=== PATIENT | female | born 1975 | race Caucasian/White ===

== ENCOUNTER 2017-09-22 14:11 | Emergency (ER) | payer BC ==
[~2017-09-22] VITALS: Ht 162.6 cm; Wt 67.0 kg
[2017-09-22 14:53] LABS: BASOPHILS % (AUTO) 0.4 % (0-1); EOSINOPHILS # (AUTO) 0.1 X10'3 (0-0.9); EOSINOPHILS % (AUTO) 1.5 % (0-6); HEMATOCRIT 37.2 % (35.0-45.0); HEMOGLOBIN 12.9 g/dl (12.0-16.0); LYMPHOCYTES # (AUTO) 1.9 X10'3 (1.1-4.8); LYMPHOCYTES % (AUTO) 21.6 % (21-51); MEAN CORPUSCULAR HGB CONC 34.7 % (33.0-36.5); MEAN PLATELET VOLUME 8.4 FL (7.4-10.4); MONOCYTES # (AUTO) 0.3 X10'3 (0-0.9); MONOCYTES % (AUTO) 3.6 % (2-12); NEUTROPHILS # (AUTO) 6.6 X10'3 (1.8-7.7); NEUTROPHILS % (AUTO) 72.9 % (42-75); PLATELET COUNT 253 X10'3 (140-440); RED BLOOD COUNT 3.79 X10'6 (4.20-5.60); RED CELL DISTRIBUTION WIDTH 11.8 % (11.5-14.5)
[2017-09-22 15:09] LABS: ALANINE AMINOTRANSFERASE 18 U/L (12-78); ALBUMIN 3.7 G/DL (3.4-5.0); ALBUMIN/GLOBULIN RATIO 1.1 (1.1-1.5); ALKALINE PHOSPHATASE 64 IU/L (46-116); ANION GAP 8 (8-16); ASPARTATE AMINO TRANSFERASE 14 U/L (10-37); BILIRUBIN,TOTAL 0.8 MG/DL (0.1-1.0); BLOOD UREA NITROGEN 13 MG/DL (7-18); BUN/CREATININE RATIO 16.7 (6.6-38.0); CHLORIDE 104 MMOL/L (99-107); CREATININE 0.78 MG/DL (0.40-0.90); GLUCOSE 149 MG/DL (70-104); POTASSIUM 3.6 MMOL/L (3.5-5.1); SODIUM 140 MMOL/L (135-145); TOTAL CARBON DIOXIDE 27.8 MMOL/L (24-32); eGFR 80 ML/MIN
[2017-09-22 18:14] VITALS: BP 124/79
== END 2017-09-22 18:15 | disposition home or self-care (01) ==
LOC: ER 14:13
DX: R55 Syncope and collapse (principal)
CPT/HCPCS: 36415; 80053; 85025; 93005; 99285

== ENCOUNTER 2019-02-25 16:46 | Emergency (ER) | payer BC ==
[~2019-02-25] VITALS: Ht 162.6 cm; Wt 68.2 kg
[2019-02-25 16:55] VITALS: BP 122/71
[2019-02-25] MEDS ORDERED: ondansetron 4mg rapidly disintigrating tab PO ONE (17:40)
[2019-02-25] MEDS ORDERED: HYDROcodone/acetaminophen 5mg/325mg tablet PO ONE (17:40)
[2019-02-25] MEDS ORDERED: HYDR-4383 PO (17:47)
[2019-02-25] MEDS ORDERED: ONDA4TAB6 PO (17:47)
--- NOTE | 2019-02-25 18:04 | NUR ---
orthopedic coder @ bedside
== END 2019-02-25 18:25 | disposition home or self-care (01) ==
LOC: ER 16:47
DX: S82.831A Other fracture of upper and lower end of right fibula, initial encounter for closed fracture (principal); Z79.899 Other long term (current) drug therapy; V86.96XA Unspecified occupant of dirt bike or motor/cross bike injured in nontraffic accident, initial encounter; Y93.89 Activity, other specified; Y92.89 Other specified places as the place of occurrence of the external cause; Y99.8 Other external cause status
CPT/HCPCS: 29515; 73610; 99283

== ENCOUNTER 2019-03-11 10:11 | Day surgery (SDC) | payer BC ==
[2019-03-10 16:00] LABS: BASOPHILS % (AUTO) 0.4 % (0-1); EOSINOPHILS # (AUTO) 0.1 X10'3 (0-0.9); EOSINOPHILS % (AUTO) 1.5 % (0-6); MEAN CORPUSCULAR HEMOGLOBIN 34.3 PG (27.0-31.0); MEAN CORPUSCULAR HGB CONC 35.3 g/dL (33.0-36.5); MEAN CORPUSCULAR VOLUME 97.2 FL (78-98); MEAN PLATELET VOLUME 7.9 FL (7.4-10.4); MONOCYTES # (AUTO) 0.4 X10'3 (0-0.9); MONOCYTES % (AUTO) 3.9 % (2-12); NEUTROPHILS # (AUTO) 6.6 X10'3 (1.8-7.7); NEUTROPHILS % (AUTO) 72.2 % (42-75); PRE OP HEMATOCRIT 38.5 % (35.0-45.0); PRE OP HEMOGLOBIN 13.6 g/dL (12.0-16.0); PRE OP PLATELET COUNT 316 X10'3 (140-440); RED BLOOD COUNT 3.96 X10'6 (4.20-5.60); RED CELL DISTRIBUTION WIDTH 11.7 % (11.5-14.5)
[2019-03-10 16:15] LABS: ALBUMIN 3.8 G/DL (3.4-5.0); ALBUMIN/GLOBULIN RATIO 1.1 (1.1-1.5); ALKALINE PHOSPHATASE 71 IU/L (46-116); BLOOD UREA NITROGEN 11 MG/DL (7-18); BUN/CREATININE RATIO 16.2 (6.6-38.0); CALCIUM 8.6 MG/DL (8.5-10.1); CHLORIDE 107 MMOL/L (99-107); CREATININE 0.68 MG/DL (0.40-0.90); PRE OP ALT 23 U/L (30-65); PRE OP ANION GAP 4 (8-16); PRE OP AST 12 U/L (10-37); PRE OP BILIRUB, TOTAL 0.5 MG/DL (0.0-1.0); PRE OP GLUCOSE 101 MG/DL (70-104); PRE OP POTASSIUM 3.6 MMOL/L (3.4-5.1); PRE OP SODIUM 142 MMOL/L (135-145); TOTAL CARBON DIOXIDE 31.5 MMOL/L (24-32); TOTAL PROTEIN 7.3 G/DL (6.4-8.2); eGFR > 90 ML/MIN
[~2019-03-11] VITALS: Ht 162.6 cm; Wt 70.4 kg
[~2019-03-11 10:11] MED LIST: CHOL400T14 PO; DOCUMENT DATE & TIME OF BETA-BLOCKER PO ONE; PROP40TA72 PO; SUMA50TA17 PO; VALA500T37 PO; VITA-268 PO; ceFAZolin 1GM/D5W- ADD-VANTAGE 50 ML IV ONE; famotidine 10mg tablet PO ONE; ringers solution, lacted 1,000 ML IV SCH
[2019-03-11 11:42] VITALS: BP 123/80
[2019-03-11 11:46] VITALS: BP 123/80
[2019-03-11] MEDS ORDERED: cloNIDine hcl/PF 100mcg/ml inj ONE (14:15)
[2019-03-11] MEDS ORDERED: sevoflurane 250ml liquid IH ONE (14:35)
[2019-03-11] MEDS ORDERED: ceFAZolin 1000mg inj ONE (14:39)
[2019-03-11] MEDS ORDERED: fentaNYL/PF 50MCG/1 ML 2ML syringe ONE (15:15)
[2019-03-11] MEDS ORDERED: midazolam 2 mg/2 ml injection ONE (15:15)
[2019-03-11] MEDS ORDERED: ROPIVAcaine 0.5% (5mg/ml) 30ml vial ONE ×2 (15:36)
[2019-03-11] MEDS ORDERED: LIDOcaine 2% (20mg/ml) 5ml vial ONE (15:36)
[2019-03-11] MEDS ORDERED: propofol inj 20 ML IV ONE (15:36)
[2019-03-11] MEDS ORDERED: ondansetron/PF 4mg/2ml inj ONE (15:37)
[2019-03-11] MEDS ORDERED: dexamethasone sod phosphate 4mg/ml inj. ONE (15:37)
[2019-03-11] MEDS ORDERED: ringers solution, lacted 1,000 ML IV SCH (16:14)
[2019-03-11] MEDS ORDERED: proCHLORperazine 10 MG/2 ml inj IV PRN (16:15)
[2019-03-11] MEDS ORDERED: morphine 4 MG/ML inj SYRINge IV PRN ×2 (16:15)
[2019-03-11] MEDS ORDERED: acetaminophen 1,000mg/100ml IV 100 ML IV PRN (16:15)
[2019-03-11] MEDS ORDERED: meperidine/PF 25mg/ml syringe IV PRN ×3 (16:15)
[2019-03-11] MEDS ORDERED: ondansetron/PF 4mg/2ml inj IV PRN (16:15)
[2019-03-11] MEDS ORDERED: ketorolac trometh. 30mg/ml inj. ONE (16:18)
[2019-03-11 16:31] VITALS: BP 100/76
--- NOTE | 2019-03-11 16:31 | NUR ---
Received from OR via ORTHO BED WITH ED , accompanied by Anesthesiologist TABBY and report given by Anesthesiolgist. PATIENT WITH 20G PIV IN RIGHT HAND RUNNING LR AT 100. DENIES PAIN. VSS. GATCHED FOOT OF BED AND PATIENT HAS SPLINT TO RIGHT LE. + CAP REFILL TO TOES AND MOVES ALL TOES WELL. GLASSES DONNED AND PATIENT NOW ON ROOM AIR. Addendum: 03/11/19 at 1650 by Siddhartha Chou RN, RN Amended: Links added.
[2019-03-11 16:41] VITALS: BP 105/65
[2019-03-11 16:51] VITALS: BP 104/66
[2019-03-11 17:01] VITALS: BP 102/68
--- NOTE | 2019-03-11 17:11 | NUR ---
ALL DC CRITERIA HAS BEEN MET . IV IN PLACE AND IS CDI RUNNING FLUIDS. DENIES PAIN. RIGHT LE GATCHED WITH + CAP REFILL AND MOVEMENT. 2-10 PAIN UPON ARRIVAL TO ORTHO. BED LOW, CALL LIGHT PRESENTT WELL FAMILY AND YOHAN GUPTA WHOM ASSISTED WITH SET UP AND ASSESSMENT OF PATIENT. ALL QUESTIONS ANSWERED. Addendum: 03/11/19 at 1727 by Siddhartha Carrington - YOHAN ALMANZAR Amended: Links added.
--- NOTE | 2019-03-11 17:11 | NUR ---
ALL DC INSTRUCTIONS GIVEN TO PATIENT AND SPOUSE. ALL QUESTIONS ANSWERED TO SATISFACTION. IV OUT WITHOUT ISSUE. AMBULATED NON WEIGHT BEARING AND WAS TAKEN OUT VIA WHEELCHAIR. FAMILY DROVE PATIENT HOME. PATIENT PAIN CONTROLLED AT THIS TIME. Addendum: 03/11/19 at 1831 by Siddhartha Chou RN, RN Amended: Links added.
--- NOTE | 2019-03-11 17:19 | NUR ---
Patient in room . I have received report from Siddhartha ALMANZAR and had the opportunity to ask questions and assume patient care.
== END 2019-03-11 17:11 | disposition home or self-care (01) ==
LOC: PAS 10:11
PROVIDERS: ATTEND Orthopaedic Surgery
DX: S82.61XA Displaced fracture of lateral malleolus of right fibula, initial encounter for closed fracture (principal); G43.909 Migraine, unspecified, not intractable, without status migrainosus; G89.18 Other acute postprocedural pain; X58.XXXA Exposure to other specified factors, initial encounter; Y93.89 Activity, other specified; Y92.89 Other specified places as the place of occurrence of the external cause; Y99.8 Other external cause status; Z98.890 Other specified postprocedural states; Z90.710 Acquired absence of both cervix and uterus; Z79.899 Other long term (current) drug therapy; Z83.3 Family history of diabetes mellitus; Z82.49 Family history of ischemic heart disease and other diseases of the circulatory system; Z80.0 Family history of malignant neoplasm of digestive organs; Z80.3 Family history of malignant neoplasm of breast; Z80.52 Family history of malignant neoplasm of bladder
CPT/HCPCS: 27792; 36415; 64445; 64448; 80053; 82948; 85025; C1713; J0690; J0735; J1100; J1885; J2001; J2250; J2405; J2704; J3010; A4215; A4618; A6449; A7000; J2795; J7120

== ENCOUNTER 2019-04-02 10:37 | Outpatient (CLI) | payer BC ==
[~2019-04-02 10:37] MED LIST changes: -DOCUMENT DATE & TIME OF BETA-BLOCKER PO ONE; -VALA500T37 PO; +VALA500T41 PO; -ceFAZolin 1GM/D5W- ADD-VANTAGE 50 ML IV ONE; -famotidine 10mg tablet PO ONE; -ringers solution, lacted 1,000 ML IV SCH
== END 2019-04-02 23:59 | disposition home or self-care (01) ==
LOC: VAS 10:37
PROVIDERS: ATTEND Orthopaedic Surgery
DX: M79.604 Pain in right leg (principal); R25.2 Cramp and spasm
CPT/HCPCS: 93971